=== PATIENT | female | born 1955 | race Caucasian/White ===

== ENCOUNTER 2021-10-03 11:38 | Day surgery (SDC) | payer MEDICARE, OTHER ==
[~2021-10-03] VITALS: Ht 170.2 cm; Wt 91.0 kg
--- NOTE | ~2021-10-03 | OR ---
[facility] [address] [place], [place] [address] Draft DATE OF OPERATION: 10/03/2021 SURGEON: Sangita Hernandez MD PREOPERATIVE DIAGNOSES: 1. History of rectal bleeding (now resolved). 2. No prior history of colonoscopy. POSTOPERATIVE DIAGNOSIS: Mild proctitis, probably bowel prep related. PROCEDURE: Total colonoscopy to cecum with biopsy of rectum. ANESTHESIA: Intravenous sedation; fentanyl 100 mcg and Versed 5 mg. INDICATION: This 66-year-old white woman is a patient of Dr. Foster of [place], [place] and had an episode of significant rectal bleeding. This has since resolved. She has no prior history of colonoscopy and no family history of colon cancer. She is admitted to undergo colonoscopy. She understands the risks of bleeding, infection, and perforation. FINDINGS: The prep was adequate with irrigation. Complete colonoscopy was undertaken of the cecum without question. She had no evidence of diverticular formation, polyps, cancer, or hemorrhoids per se though there was mild proctitis, possibly bowel prep related. DESCRIPTION OF PROCEDURE: The patient was brought to the endoscopy suite and placed in the lateral decubitus position, given intravenous sedation to the point of slurred speech and nystagmus. Digital rectal examination was normal. An Olympus video colonoscope was passed in the rectum and manipulated throughout the colon. There was some amount of stool burden noted and with various manipulations, irrigation and so forth, the scope was passed more proximally where there was less retained fecal material. Ultimately, the cecum was intubated. Irrigation was undertaken. The ileocecal valve was easily identified with irrigation and the patient's withdrawal of the scope allowed for good visualization of the mucosa throughout. There was no evidence of polyps, colitis, diverticular formation, or other problem. Upon PATIENT NAME: SAHRA JOHN OPERATIVE REPORT DATE OF : 53 REPORT #: [id number] PHYSICIAN: SANGITA HERNANDEZ MD PCP: SATHYA FOSTER "NOLVIA" REPORT IS CONFIDENTIAL AND NOT TO BE RELEASED WITHOUT AUTHORIZATION [facility] [address] [place], [place] [address] Draft withdrawal to the rectum, there was mild inflammation. Biopsies were obtained. Retroflexed view did not demonstrate much in the way of hemorrhoidal change. The patient was taken to the recovery room in good condition having suffered no complication. CONCLUDING DIAGNOSIS: Mild proctitis, probably unrelated to recent rectal bleeding. PLAN: We will assess pathology reports. We would recommend repeat colonoscopy in 10 years, sooner if symptoms should develop. I would recommend maintenance of high-fiber diet generally. MD RENEE Kennedy/ALEXANDRA /[id number] cc: Morgan Nice [place] Copies: ~ PATIENT NAME: SAHRA JOHN OPERATIVE REPORT DATE OF : 53 REPORT #: [id number] PHYSICIAN: SANGITA HERNANDEZ MD PCP: SATHYA FOSTER "KATERINE BURNS REPORT IS CONFIDENTIAL AND NOT TO BE RELEASED WITHOUT AUTHORIZATION
--- NOTE | ~2021-10-03 | OR ---
[facility] [address] [place] [address] Draft DATE OF OPERATION: 10/03/2021 SURGEON: Sangita Hernandez MD PREOPERATIVE DIAGNOSIS: History of rectal bleeding (now resolved). POSTOPERATIVE DIAGNOSIS: Normal colon except for mild proctitis, probably bowel prep related. PROCEDURE: Total colonoscopy to cecum with cold morcellation and biopsy of rectum. ANESTHESIA: Intravenous sedation; fentanyl 100 mcg and Versed 5 mg. INDICATION: This 66-year-old white woman is a patient of Dr. Baig. She was referred for colonoscopy on the basis of episodes of rectal bleeding in the past. Sangita Hernandez MD JM/MODL /[id number] Copies: ~ PATIENT NAME: DREAD JAMESSAHRA GOLD OPERATIVE REPORT DATE OF : 53 REPORT #: [id number] PHYSICIAN: SANGITA HERNANDEZ MD PCP: SATHYA BAIG "KATERINE BURNS REPORT IS CONFIDENTIAL AND NOT TO BE RELEASED WITHOUT AUTHORIZATION
[~2021-10-03 11:38] MED LIST: CANDICIDAL CAP1 EACH PO; LISINOPRIL20 MG PO; METOPROLOL SUCC25 MG PO
--- NOTE | 2021-10-03 12:51 | NUR ---
10/03/21 Roberta1 Dolly Valentino 1246-PATIENT ARRIVED TO PACU ON 3L NC RR EVEN AWAKE DENIES PAIN OR NASUEA. ABDOMEN SOFT. IVF INFUSING. PATIENT LAYING LEFT LATERAL ENCOURAGED TO PASS GAS. PLACED ON 2L NC. PATIENT EASILY FALLS BACK ASLEEP.
--- NOTE | 2021-10-07 08:45 | PATH ---
[facility] [address] [place], [place] [address] Signed SPECIMEN(S): A RECTUM BIOPSY SPECIMEN SOURCE: A. RECTUM BIOPSY vs CLINICAL HISTORY: Screening colonoscopy. History of rectal bleeding. Postop: Mild proctitis. FINAL PATHOLOGIC DIAGNOSIS: Rectum, biopsy: - Colorectal mucosa with no histopathologic abnormality. - Negative for active or chronic proctitis. - Negative for dysplasia or malignancy. NAL:cml:C2NR MICROSCOPIC EXAMINATION: Histologic sections of all submitted blocks are examined by light microscopy. These findings, together with the gross examination, support the pathologic diagnosis. GROSS DESCRIPTION: The specimen, labeled "JM, 1," and designated on the requisition "rectum biopsy," is received in formalin and consists of three fragments of pink-rich tissue (0.2-0.3 cm in greatest dimension). The specimen is submitted entirely in cassette (A1). AC (under the direct supervision of a pathologist) The Gross Description was prepared using a voice recognition system. The report was reviewed for accuracy; however, sound-alike word errors, addition and/or deletions may occur. If there is any question about this report, please contact Client Services. PERFORMING LABORATORY: The technical component was performed by [employer], [address] [place] [address] (Public Address Systems Mechanic: Elvia Gibbs MD; CLIA# [id number]). [facility], [address] [address] (CLIA# [id number]). Diagnostician: Stephanie Rivera MD Pathologist PATIENT NAME: SAHRA JOHN PATHOLOGY DATE OF : 53 REPORT #: [id number] PHYSICIAN: MARITA MCKEON PCP: SATHYA FOSTER "NOLVIA" REPORT IS CONFIDENTIAL AND NOT TO BE RELEASED WITHOUT AUTHORIZATION [facility] [address] [place] [address] [place], [place] [address] Signed Electronically Signed 10/07/2021 Copies: ~ PATIENT NAME: SAHRA JOHN PATHOLOGY DATE OF : 53 REPORT #: [id number] PHYSICIAN: MARITA PATHOLOGY PCP: SATHYA FOSTER "NOLVIA" REPORT IS CONFIDENTIAL AND NOT TO BE RELEASED WITHOUT AUTHORIZATION
== END 2021-10-03 13:35 | disposition home or self-care (01) ==
LOC: DS 11:38 → OPS 11:38 → DS 11:42 → OPS 12:30 → DS 13:00 → OPS 13:35
PROVIDERS: ATTEND Surgery
PROC: 0DBP8ZX Excision of Rectum, Via Natural or Artificial Opening Endoscopic, Diagnostic (ICD-10-PCS; principal; 2021-10-03 12:30)
DX: K62.89 Other specified diseases of anus and rectum (principal); E66.9 Obesity, unspecified; I10 Essential (primary) hypertension; Z68.31 Body mass index [BMI] 31.0-31.9, adult
CPT/HCPCS: 99153; G0500; J2250; J3010; J7121